=== PATIENT | female | born 1965 | race Caucasian/White ===

== ENCOUNTER 2018-05-16 09:35 | Day surgery (SDC) | payer BC ==
[~2018-05-16 09:35] MED LIST: Buffered Lidocaine 0.9% SYRIN* 5 ML/SYR SYRINGE INTRADERM ONE; Lactated Ringers 1000 ML Bag* 1,000 ML IV SCH
[2018-05-16] MEDS ORDERED: KETAMINE HCL* 50 MG/ML 10 ML VIAL ONE (10:24)
[2018-05-16] MEDS ORDERED: Propofol* 10 MG/ML 20 ML BTL ONE (10:24)
[2018-05-16] MEDS ORDERED: Midazolam* 1 MG/ML 2 ML VIAL (2 MG) ONE (10:24)
[2018-05-16] MEDS ORDERED: Naloxone* 0.4 MG/ML 1 ML VIAL IV PRN (11:14)
[2018-05-16 12:16] VITALS: BP 140/92
[2018-05-16] MEDS ORDERED: Bupivacaine 0.25% SDV PF* 10 ML VIAL INJ ONE (14:00)
--- NOTE | 2018-05-16 17:13 | OP ---
DATE OF OPERATION: 05/16/18 - [facility] DATE OF : 63 SURGEON: Ko Deluna MD. CARGO SERVICE AGENT: SNEHA Rosa ANESTHESIOLOGIST: Dr. Salomon. ANESTHESIA: Local MAC. PRE-OP DIAGNOSES: 1. Right middle finger tendon sheath mass. 2. Right middle trigger finger. POST-OP DIAGNOSES: 1. Right middle finger tendon sheath mass. 2. Right middle trigger finger. OPERATIVE PROCEDURE: 1. Excision of right middle finger tendon sheath mass. 2. Right middle trigger finger release of A1 rosi. ESTIMATED BLOOD LOSS: 2 mL. COMPLICATIONS: None. FINDINGS: See above and below. DESCRIPTION OF PROCEDURE: Alena was seen in the preoperative holding area. The correct side, site, and procedure were identified. We came back to the operating room. She got some anesthesia. We had the time-out and I infiltrated the operative area with 0.25% plain Marcaine. The arm was then prepped and draped in the usual fashion and a time-out was performed. I exsanguinated the arm with the Esmarch and the tourniquet was inflated to 250 mmHg. I made an oblique incision in line with the distal palmar crease over the middle finger A1 rosi. Dissection was carried down bluntly and the tendon sheath mass was identified. This was excised sharply with a 15-blade right off the tendon sheath and handed off as a specimen. I then incised the A1 rosi longitudinally along the radial third. The release was completed distally and proximally with the tenotomy scissors. Once there was absolutely no compression on the tendons and no catching, I had her flex the fingers down multiple times to confirm this, so we then irrigated out the wound. The skin was closed with 4-0 nylon suture. Soft dressings were applied and she was taken to the recovery room in stable condition. [id number]/[facility] #: [id number] [facility]ITALKatherine
== END 2018-05-16 12:15 | disposition home or self-care (01) ==
LOC: OR 09:35
PROVIDERS: ATTEND Orthopaedic Surgery Hand Surgery
DX: M67.441 Ganglion, right hand (principal); M65.331 Trigger finger, right middle finger; J45.909 Unspecified asthma, uncomplicated; M19.90 Unspecified osteoarthritis, unspecified site; Z68.33 Body mass index [BMI] 33.0-33.9, adult
CPT/HCPCS: 88304; J2250; J2704; J3490

== ENCOUNTER 2020-09-24 06:33 | Inpatient (IN) ==
[~2020-09-24 06:33] MED LIST changes: -Buffered Lidocaine 0.9% SYRIN* 5 ML/SYR SYRINGE INTRADERM ONE; +Buffered Lidocaine 1% SYRIN 1 ml INTRADERM ONE; +Famotidine IV 10 MG/ML 2 ml VIAL (20 mg) IV ONE; +Famotidine IV 10 MG/ML 2 ml VIAL (20 mg) ONE; -Lactated Ringers 1000 ML Bag* 1,000 ML IV SCH; +Lactated Ringers 1000 ml BAG 1,000 ML IV SCH; +ceFAZolin 2 GM PREMIX 2 GM/50 ML BAG ONE
[2020-09-24] MEDS ORDERED: ROPIVACAINE 5 MG/ML 30 ML BTL (0.5%) ONE (06:38)
[2020-09-24] MEDS ORDERED: Lidocaine 1% MPF 5 ML VIAL ONE (06:38)
[2020-09-24] MEDS ORDERED: Buffered Lidocaine 1% SYRIN 1 ml INTRADERM ONE (06:43)
[2020-09-24] MEDS ORDERED: fentaNYL 100 mcg/2 ml 50 MCG/ML VIAL ONE (07:19)
[2020-09-24] MEDS ORDERED: Propofol 0 MG/0 ML BTL ONE (07:19)
[2020-09-24] MEDS ORDERED: Midazolam 2 mg/2 ml VIAL 1 mg/ml 2 ml VIAL (2 mg) ONE (07:19)
[2020-09-24] MEDS ORDERED: Lidocaine 2% PF 5 ML VIAL ONE (07:19)
[2020-09-24] MEDS ORDERED: Propofol 10 MG/ML 20 ML BTL ONE ×2 (07:19→10:16)
[2020-09-24] MEDS ORDERED: Ropivacaine 5 MG/ML 20 ML VIAL 0.5% (100 MG) ONE (07:41)
[2020-09-24] MEDS ORDERED: Midazolam 5 mg/5 ml VIAL 1 mg/ml 5 ml VIAL (5 mg) ONE (07:42)
[2020-09-24] MEDS ORDERED: DiMENhydriNATE IV 50 mg/ml 1 ml VIAL IV PUSH PRN (09:04)
[2020-09-24] MEDS ORDERED: Naloxone 0.4 mg VIAL 0.4 mg/ml 1 ml VIAL IV PRN (09:04)
[2020-09-24] MEDS ORDERED: HYDROmorphone 1 MG/1 ML SYRINGE IV PRN (09:04)
[2020-09-24] MEDS ORDERED: EPHEDrine (Pressors) 50 MG/ML VIAL ONE (09:06)
[2020-09-24] MEDS ORDERED: Morphine 2 MG/ML SYRINGE IV PRN (11:15)
[2020-09-24] MEDS ORDERED: Ondansetron ODT 4 mg TAB 4 MG TAB PO PRN (11:15)
[2020-09-24] MEDS ORDERED: Lactulose 30 ml UDC PO PRN (11:15)
[2020-09-24] MEDS ORDERED: diPHENhydraMINE IV 50 MG/ML 1 ml VIAL (BENADRYL) IV PRN (11:15)
[2020-09-24] MEDS ORDERED: Ondansetron 4 mg VIAL 2 MG/ML 2 ml VIAL IV PRN (11:15)
[2020-09-24] MEDS ORDERED: Magnesium Hydroxide LIQ 30 ML UDC PO PRN (11:15)
[2020-09-24] MEDS ORDERED: diPHENhydraMINE 25 mg TAB PO PRN (11:15)
[2020-09-24] MEDS ORDERED: Acetaminophen IV 1 GM/100ML 1,000 MG/100 ML VIAL IVPB ONE (11:41)
[2020-09-24] MEDS ORDERED: Acetaminophen IV 1 GM/100ML 100 ML ONE (11:44)
[2020-09-24] MEDS: Tapentadol 50 mg TAB (NF) PO PRN ×3 (12:07→21:14)
[2020-09-24] MEDS: Lactated Ringers 1000 ml BAG 1,000 ML IV SCH ×2 (12:53→22:51)
[2020-09-24] MEDS: ceFAZolin 1 GM ADVAN 1 GM in NS 0.9% 50 ML 50 ML IVPB SCH (17:32)
[2020-09-24] MEDS: Magnesium Hydroxide LIQ 30 ML UDC PO SCH (21:16)
[2020-09-25] MEDS: ceFAZolin 1 GM ADVAN 1 GM in NS 0.9% 50 ML 50 ML IVPB SCH ×2 (00:57→09:12)
[2020-09-25] MEDS: Tapentadol 50 mg TAB (NF) PO PRN ×3 (04:42→14:32)
[2020-09-25 04:55] LABS: Hematocrit 35 % (35-47); Hemoglobin 11.4 g/dL (12.0-16.0); Mean Platelet Volume 10.1 fL (7.4-10.4); Platelet Count 148 10^3/uL (150-450)
[2020-09-25 05:14] LABS: Calcium 8.6 mg/dL (8.6-10.3); EGFR African American 120.9 (>60); EGFR Non-African American 99.9 (>60); Potassium 4.5 mmol/L (3.5-5.0)
[2020-09-25] MEDS: Magnesium Hydroxide LIQ 30 ML UDC PO SCH (08:06)
[2020-09-25] MEDS ORDERED: Vitamin THERAPEUTIC TAB PO SCH (09:00)
[2020-09-25 11:47] VITALS: BP 111/58
== END 2020-09-25 15:40 | disposition home or self-care (01) | DRG 302 ==
LOC: AA 06:33 → EDSTATUS 11:00 → SSU 11:15
PROVIDERS: ADMIT Orthopaedic Surgery Adult Reconstructive Orthopaedic Surgery; ATTEND Orthopaedic Surgery Adult Reconstructive Orthopaedic Surgery